=== PATIENT | male | born 1955 | race Caucasian/White ===

== ENCOUNTER 2017-09-05 10:22 | Emergency (ER) | payer OTHER ==
[2017-09-05 10:42] VITALS: BMI 33.9
--- NOTE | 2017-09-05 10:58 | PDOC ---
History of Present Illness - General Chief Complaint: Edema Stated Complaint: EDEMA Time Seen by Provider: 09/05/17 10:43 History Source: Patient Exam Limitations: No Limitations - History of Present Illness Initial Comments: CHIEF COMPLAINT: 62 y/o male with PMH HTN, HLD, NIDDM, BPH BIB EMS from [facility] for leg edema x 1 year. HISTORY OF PRESENT ILLNESS: The patient denies all other complaints including fever, cough, hemoptysis, CP, SOB, orthopnea, n/v/d, abd pain, back pain, calf pain, streaking. He is currently taking 40mg PO lasix daily. Vital signs on arrival are within normal limits. REVIEW OF SYSTEMS: GENERAL/CONSTITUTIONAL: No fever/chills. No weakness. No weight change. HEAD, EYES, EARS, NOSE AND THROAT: No change in vision. No ear pain or discharge. No sore throat. CARDIOVASCULAR: No chest pain or shortness of breath. RESPIRATORY: No cough, wheezing, or hemoptysis. No orthopnea GASTROINTESTINAL: No abd pain, nausea, vomiting, diarrhea. GENITOURINARY: No dysuria, frequency, or change in urination. MUSCULOSKELETAL: +leg swelling x 1 year. No joint or muscle pain. No neck or back pain. SKIN: No rash or easy bruising. NEUROLOGIC: No headache, vertigo, loss of consciousness, or loss of sensation. PHYSICAL EXAM: VITAL_SIGNS: within normal limits GENERAL_APPEARANCE: alert, cooperative, no obvious discomfort. MENTAL_STATUS: speech clear, oriented X 3, responds appropriately to questions. CARDIAC: RRR without m/g/r. LUNGS: CTAB without wheezing, rhonchi, rales, crackles, accessory muscle use. NEURO: motor intact and sensory intact in injured extremity. EXTREMITIES: 2+ dorsalis pedis pulse b/l. 2+ pitting edema b/l LEs. Mild brawny edema of right LE with 2 small open sores weeping serosanguinous fluid. Negative Jacky's sign b/l. SKIN: warm, dry, good color. Past History - Past Medical History Home Medications: Ambulatory Orders Amlodipine Besylate [Norvasc -] 10 mg PO DAILY 09/05/17 Aripiprazole [Abilify] 10 mg PO HS 09/05/17 Atorvastatin Calcium [Lipitor] 20 mg PO DAILY 09/05/17 Diazepam [Valium] 5 mg PO HS 09/05/17 Fluvoxamine Maleate 50 mg PO BID 09/05/17 Furosemide [Lasix] 40 mg PO BID 09/05/17 Metoprolol Tartrate [Lopressor -] 25 mg PO BID 09/05/17 Mirtazapine [Remeron -] 15 mg PO HS 09/05/17 Sennosides [Senna] 2 tab PO HS 09/05/17 Sitagliptin Phosphate [Januvia] 25 mg PO DAILY 09/05/17 Tamsulosin HCl [Flomax] 0.4 mg PO DAILY 09/05/17 COPD: No Diabetes: Yes HTN: Yes Hypercholesterolemia: Yes Psychiatric Problems: Yes (schioeffective) - Suicide/Smoking/Psychosocial Hx Smoking History: Never smoked Have you smoked in the past 12 months: No Information on smoking cessation initiated: No Hx Alcohol Use: No Drug/Substance Use Hx: No *Physical Exam - Vital Signs Last Vital Signs Temp Pulse Resp BP Pulse Ox 98.4 F 75 20 111/63 98 09/05/17 10:38 09/05/17 10:38 09/05/17 10:38 09/05/17 10:38 09/05/17 10:38 ED Treatment Course - LABORATORY CBC & Chemistry Diagram: 09/05/17 11:04 09/05/17 11:25 Medical Decision Making - Medical Decision Making A/P: 62 y/o male with b/l LE pitting edema x 1 year. No other symptoms or complaints. Plan is as follows: 1. UA/culture 2. Labs Labs unremarkable. BNP mildly elevated to 157. UA negative for infection Patient will be sent back to [facility] with instructions to continue daily lasix. The patient verbalizes understanding of all instructions, has no further questions and is awaiting discharge. *DC/Admit/Observation/Transfer Diagnosis at time of Disposition: Leg swelling - Discharge Dispostion Disposition: ASSISTED FACILITY Condition at time of disposition: Good - Referrals Referrals: Austin Culver [Primary Care Provider] - Call tomorrow - Patient Instructions Printed Discharge Instructions: DI for Peripheral Edema -- Bilateral Additional Instructions: Discharge Instructions: -Your BNP was mildly elevated to 157. Please continue to take your lasix daily -The rest of your lab work was unremarkable -Follow up with your doctor within 1 week -Return to the ER with any worsening or concerning symptoms - Post Discharge Activity
[2017-09-05 11:35] LABS: BASO % 0.8 % (0-2.0); EOS % 0.9 % (0-4.5); HEMATOCRIT 37.8 % (35.4-49); HEMOGLOBIN 12.5 GM/dL (11.7-16.9); LYMPH % 17.1 % (8-40); MCH 28.7 pg (25.7-33.7); MCHC 33.1 g/dl (32.0-35.9); MEAN CELL VOLUME 86.8 fl (80-96); MEAN PLT VOLUME 7.8 fl (7.5-11.1); MONO % 8.1 % (3.8-10.2); NEUT % 73.1 % (42.8-82.8); PLATELET COUNT 203 K/MM3 (134-434); RBC 4.36 M/mm3 (4.00-5.60); RDW 15.1 % (11.9-15.9); WHITE BLOOD COUNT 8.7 K/mm3 (4.0-10.0)
[2017-09-05 11:35] LABS: URINE APPEARANCE CLEAR; URINE BILIRUBIN NEGATIVE (<2.0 mg/dL); URINE BLOOD NEGATIVE (NEGATIVE); URINE COLOR STRAW; URINE GLUCOSE (UA) NEGATIVE (NEGATIVE); URINE KETONE NEGATIVE (NEGATIVE); URINE LEUK ESTERASE NEGATIVE (NEGATIVE); URINE NITRITE NEGATIVE (NEGATIVE); URINE PROTEIN NEGATIVE (NEGATIVE); URINE UROBILINOGEN NEGATIVE mg/dL (0.2-1.0)
[2017-09-05 11:57] LABS: ALBUMIN 3.4 g/dl (3.4-5.0); ANION GAP 5 (8-16); BLOOD UREA NITROGEN 31 mg/dL (7-18); CALCIUM 8.7 mg/dL (8.5-10.1); CHLORIDE 106 mmol/L (98-107); CO2 27 mmol/L (21-32); CREATININE 1.5 mg/dL (0.7-1.3); GLUCOSE,RANDOM 101 mg/dL (74-106); SGPT/ALT 19 U/L (12-78); SODIUM 138 mmol/L (136-145)
[2017-09-05 11:59] LABS: BILIRUBIN,TOTAL 0.3 mg/dL (0.2-1.0); POTASSIUM 4.5 mmol/L (3.5-5.1); SGOT/AST 21 U/L (15-37); TOT PROT 7.3 g/dl (6.4-8.2)
[2017-09-05 12:02] LABS: ALK PHOS 87 U/L (45-117); N-TERMINAL BNP 157.82 pg/ml (5-125)
[2017-09-05 14:22] VITALS: BP 116/67; PULSE 71; TEMP 98.6
== END 2017-09-05 15:51 ==
LOC: JER 10:22
DX: R60.0 Localized edema (principal); I10 Essential (primary) hypertension; E78.00 Pure hypercholesterolemia, unspecified; E11.9 Type 2 diabetes mellitus without complications; Z79.84 Long term (current) use of oral hypoglycemic drugs; N40.0 Benign prostatic hyperplasia without lower urinary tract symptoms; F25.9 Schizoaffective disorder, unspecified; S81.801A Unspecified open wound, right lower leg, initial encounter; X58.XXXA Exposure to other specified factors, initial encounter; Y93.89 Activity, other specified; Y92.098 Other place in other non-institutional residence as the place of occurrence of the external cause; Y99.8 Other external cause status
CPT/HCPCS: 36415; 80053; 81003; 83880; 85025; 87077; 87086; 99284-25

== ENCOUNTER 2018-08-10 12:31 | Emergency (ER) | payer OTHER ==
[2018-08-10 12:39] VITALS: BP 110/68; PULSE 81; TEMP 99.2; BMI 33.2
--- NOTE | 2018-08-10 12:49 | PDOC ---
History of Present Illness - General Chief Complaint: Bleeding from Anus Stated Complaint: Rectal Bleed History Source: Patient Exam Limitations: No Limitations - History of Present Illness Initial Comments: 08/10/18 12:47 This is a 63YOM with h/o schizoaffective disorder, constipation (takes MiraLax and stool softener), HTN, HLD, NIDDM, and BPH, who was BIBEMS from [facility] c/o painless bright red rectal bleeding on bowel movements for an unknown duration per his own report. He notes the blood was on the toilet paper and in the toilet, but was not mixed with the stool and was not a large amount. He believes he has hemorrhoids but these have not been painful. He otherwise denies any new symptoms (no f/c/n/v/d/c, black stool, FARLEY, lightheadedness, dizziness, LOC, chest pain, palpitations, SOB, weakness, paleness, etc). 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 He complained to his RN after the episode this morning. Past History - Past Medical History Allergies/Adverse Reactions: Allergies Allergy/AdvReac Type Severity Reaction Status Date / Time No Known Allergies Allergy Verified 08/10/18 13:23 Home Medications: Ambulatory Orders Atorvastatin Calcium [Lipitor] 20 mg PO DAILY 09/05/17 Diazepam [Valium] 5 mg PO HS 09/05/17 Fluvoxamine Maleate 50 mg PO BID 09/05/17 Metoprolol Tartrate [Lopressor -] 25 mg PO BID 09/05/17 Mirtazapine [Remeron -] 15 mg PO HS 09/05/17 Sennosides [Senna] 2 tab PO HS 09/05/17 Sitagliptin Phosphate [Januvia] 25 mg PO DAILY 09/05/17 Tamsulosin HCl [Flomax] 0.4 mg PO DAILY 09/05/17 Albuterol Sulfate [Proventil HFA Inhaler -] 1 - 2 inh PO BID 08/10/18 Aripiprazole [Abilify] 15 mg PO HS 08/10/18 Clopidogrel Bisulfate [Plavix -] 75 mg PO DAILY 08/10/18 Ferrous Sulfate [Feosol] 325 mg PO DAILY 08/10/18 Furosemide [Lasix -] 40 mg PO BID 08/10/18 Levothyroxine [Synthroid -] 25 mcg PO DAILY 08/10/18 Spironolactone [Aldactone] 100 mg PO DAILY 08/10/18 COPD: No Diabetes: Yes HTN: Yes Hypercholesterolemia: Yes Psychiatric Problems: Yes (schioeffective) - Suicide/Smoking/Psychosocial Hx Smoking History: Unknown if ever smoked Have you smoked in the past 12 months: No Hx Alcohol Use: No Drug/Substance Use Hx: No Review of Systems - Review of Systems Able to Perform ROS?: Yes Comments:: GEN: no fever, chills, malaise, generalized weakness, or weight change HEENT: no ear pain, sore throat, vision change, or eye pain CV: no chest pain, palpitations, lightheadedness, syncope, or edema RESP: no cough, wheezing, or SOB GI: rectal bleeding, no abdominal pain, nausea, vomiting, diarrhea, constipation , or white/black stool : no dysuria, hematuria, incontinence, retention, bleeding, or discharge MSK: no neck/back pain, muscle weakness/pain, or joint swelling/pain NEURO: no headache, seizure, vertigo, numbness, tingling, or focal weakness PSYCH: no substance use, no behavior change SKIN: no jaundice, no rash ROS otherwise negative except as noted in HPI *Physical Exam - Vital Signs Last Vital Signs Temp Pulse Resp BP Pulse Ox 99.2 F 81 14 110/68 98 08/10/18 12:38 08/10/18 12:38 08/10/18 12:38 08/10/18 12:38 08/10/18 12:38 - Physical Exam Comments: 08/10/18 13:19 GENERAL: well-appearing, pleasant, little memory of recent events, A/Ox4, no distress, answers questions appropriately HEENT: PERRLA, EOMI, moist mucous membranes NECK/BACK: no midline ttp, no spinal stepoff or deformity, no hematoma, full ROM , neck supple CARDIOVASCULAR: regular rate/rhythm, normal S1S2, no MGR, strong peripheral pulses, capillary refill <2 seconds, extremities wwp, no edema LUNGS/RESPIRATORY: no respiratory distress, CTAB GI/ABDOMEN: symmetric [id number], normoactive BS, soft, no ttp, no midline pulsatile masses : no CVA tenderness EXTREMITIES: BLE 2+ pitting edema which he notes to be chronic and which is noted on prior exam here at [facility], no muscle atrophy, no acute deformity SKIN: warm and dry, no pallor, no jaundice, no rash, no bruising, no skin breakdown, no cuts, no lesions NEUROLOGICAL: GCS 15, CN II-XII grossly intact, 5/5 strength proximally and distally, no facial droop ED Treatment Course - LABORATORY CBC & Chemistry Diagram: 08/10/18 13:40 08/10/18 13:40 Medical Decision Making - Medical Decision Making 08/10/18 13:25 Pt p/w BRBPR for unknown amount of time, no other reported symptoms. Initial Vital Signs Temp Pulse Resp BP Pulse Ox 99.2 F 81 14 110/68 98 08/10/18 12:38 08/10/18 12:38 08/10/18 12:38 08/10/18 12:38 08/10/18 12:38 Exam: As noted in Physical Exam section. DDX IBNLT bleeding hemorrhoids (internal vs. external, simple vs. thrombosed), vascular malformation, ruptured diverticulum, diverticulitis, colorectal CA, mesenteric ischemia, anal fissure, ulcerative colitis, AAA/AD, endometriosis, Meckels diverticulum, supratherapeutic INR, etc. W/U ordered: CBCD CMP Mg Phos Lactate Coags T&S EKG CXR NG Lavage Tx ordered: None at this time The patient is hemodynamically stable at this time (no hypotension, tachycardia , or reported decreased UOP). Laboratory Tests 08/10/18 08/10/18 08/10/18 13:40 13:40 13:40 WBC 9.4 RBC 4.62 Hgb 13.6 Hct 41.4 MCV 89.7 MCH 29.4 MCHC 32.8 RDW 14.2 Plt Count 203 MPV 7.3 L Sodium 139 Potassium 4.2 Chloride 105 Carbon Dioxide 26 Anion Gap 9 BUN 33 H Creatinine 1.5 H Creat Clearance w eGFR 47.27 Random Glucose 114 H Calcium 9.1 Stool Occult Blood Negative Cr and BUN roughly the same as 1 year ago. Repeat exam unchanged, patient wants to go home. DISCHARGE Workup is not concerning for emergency-level pathology at this time. The Pt is appropriate for discharge home w/ close outpatient f/u. The Pt is comfortable with this plan and will follow up with their primary care provider in 1-3 days. Referral information is given for GI provider solar panel installation supervisor. Specific return precautions are discussed and they will come back to the ER if necessary. *DC/Admit/Observation/Transfer Diagnosis at time of Disposition: Rectal bleeding - Discharge Dispostion Disposition: SENIOR CARE FACILITY Condition at time of disposition: Stable Decision to Admit order: No - Referrals Referrals: Austin Culver [Primary Care Provider] - Ronak Quintero DO [Staff Physician] - - Patient Instructions Printed Discharge Instructions: DI for Rectal Bleeding Additional Instructions: You were seen in the ER for rectal bleeding, likely because of hemorrhoids. We did lab work and everything looks normal. You are not anemic. We did an exam and there is no active bleeding. After our assessment, we do not believe you are having a medical emergency at this time, and we believe you are safe to go home. Please follow up with your primary care provider within the next week, or sooner if you have worsening rectal bleeding. Call their clinic [facility], tell them you were seen in the ER, and tell them you need an appointment. We are giving you referral information for a lapidarist doctor, and you should see them in follow-up, so call to make an appointment. You can always return to the ER for any new or worsening symptoms, especially if you have headache, dizziness , chest pain, or shortness of breath. If you are having severe or life threatening symptoms, or symptoms that make it unsafe to drive or have someone drive you, please call 911. - Post Discharge Activity
--- NOTE | 2018-08-10 12:51 | PDOC ---
Attending Attestation - Resident Resident Name: Jackie Abdalla - HPI HPI: 08/10/18 13:15 The patient is a 63 year old male with a significant past medical history of schizoaffective disorder, HTN, HLD, NIDDM, and BPH, who was BIBEMS from [facility] for evaluation of bright red blood per rectum with bowel movements for an unknown duration. The patient is a poor historian, but conversive. <Phyllis Interiano - Last Filed: 08/10/18 13:15> - Physicial Exam PE: 08/10/18 17:01 Agree with resident exam. Patient is alert and in no acute distress. Abdomen is soft, non tender non distended. - Medical Decision Making 08/10/18 17:01 Pt presents to the ED complaining of blood streaked stool. Guiac negative. Abdomen non tender. Labs within normal limits will discharge home . <Jennifer Dunbar - Last Filed: 08/10/18 17:02> Attestations - Attestations 08/10/18 13:16 Documentation prepared by Phyllis Interiano, acting as medical secretary receptionist for Jennifer Dunbar MD <Phyllis Interiano - Last Filed: 08/10/18 13:15>
[2018-08-10 13:45] LABS: HEMATOCRIT 41.4 % (35.4-49); HEMOGLOBIN 13.6 GM/dL (11.7-16.9); MCH 29.4 pg (25.7-33.7); MCHC 32.8 g/dl (32.0-35.9); MEAN CELL VOLUME 89.7 fl (80-96); MEAN PLT VOLUME 7.3 fl (7.5-11.1); PLATELET COUNT 203 K/MM3 (134-434); RBC 4.62 M/mm3 (4.00-5.60); RDW 14.2 % (11.9-15.9); WHITE BLOOD COUNT 9.4 K/mm3 (4.0-10.0)
[2018-08-10 14:10] LABS: ANION GAP 9 MMOL/L (8-16); BLOOD UREA NITROGEN 33 mg/dL (7-18); CALCIUM 9.1 mg/dL (8.5-10.1); CHLORIDE 105 mmol/L (98-107); CO2 26 mmol/L (21-32); CREATININE 1.5 mg/dL (0.55-1.3); GLUCOSE,RANDOM 114 mg/dL (74-106); POTASSIUM 4.2 mmol/L (3.5-5.1); SODIUM 139 mmol/L (136-145)
== END 2018-08-10 16:40 ==
LOC: JER 12:31
DX: K62.5 Hemorrhage of anus and rectum (principal); I10 Essential (primary) hypertension; E11.9 Type 2 diabetes mellitus without complications; Z79.84 Long term (current) use of oral hypoglycemic drugs; E78.5 Hyperlipidemia, unspecified; N40.0 Benign prostatic hyperplasia without lower urinary tract symptoms; F25.9 Schizoaffective disorder, unspecified
CPT/HCPCS: 36415; 80048; 82272; 85027; 99282-25

== ENCOUNTER 2018-11-01 16:51 | Emergency (ER) | payer OTHER | END 2018-11-01 23:09 | disposition home or self-care (01) | LOC: JER 16:51 ==

== ENCOUNTER 2019-06-21 18:30 | Emergency (ER) | payer OTHER ==
[2019-06-21 19:09] VITALS: TEMP 97.9; BMI 31.8
--- NOTE | 2019-06-21 19:12 | PDOC ---
History of Present Illness - General Chief Complaint: Choking Sensation Stated Complaint: VOMITING Time Seen by Provider: 06/21/19 19:12 - History of Present Illness Initial Comments: HPI: 64yo M with PMH schizoaffective disorder, HTN, HLD, NIDDM, BPH, chronic constipation, hypothyroidism BIBA to ED from [facility] for vomiting x 2 days. Patient without acute complaints. He states he vomiting undigested brown pork onto his dinner plate today. No abdominal pain. Not currently nauseous. Per a phone call with Miss Newton at [facility], patient has had vomiting for the past two days (which is inconsistent with patient's account). No history of abdominal surgeries. Last bowel movement was this morning and was a normal formed brown stool without blood. Patient denies fevers, chills, chest pain, or shortness of breath. ROS: Constitutional: no fever, no chills HEENT: no throat pain, no dysphagia Cardiovascular: no chest pain, no palpitations Respiratory: no cough, no shortness of breath Gastrointestinal: no abdominal pain, +vomiting Genitourinary: no dysuria, no hematuria Musculoskeletal: no myalgia, no arthralgia Skin: no rash, no itching Neurologic: no headache, no weakness Psych: no agitation, no anxiety PE: General: Awake, alert, and fully oriented, in no acute distress Head: No signs of trauma Eyes: EOMI, sclera anicteric ENT: Moist mucus membranes Neck: Normal ROM, supple Lungs: Lungs clear, Normal breath sounds Cardio: Regular rhythm, S1 and S2 present Abdomen: Soft, nontender. No guarding, no rebound, no masses. Extremities: Normal range of motion, Distal pulses present SKIN: Warm, Dry, normal turgor Neurologic: Cranial nerves II through XII grossly intact. Normal speech. Abnormal affect ED Course/MDM: DDX including but not limited to gastritis, gastroenteritis, cholecystitis, pancreatitis, ACS, hyperglycemia Labs, EKG As patient may be an unreliable historian, I have a low threshold to obtain imaging. CTAP with IV contrast ordered Will reassess 06/21/19 19:12 Discussed case with Miss Newton at [facility], , extension [phone] Patient has been vomiting for two days: "Threw up a lot yesterday" and vomited at least twice today Has been "sluggish." Is "sluggish" at baseline but has been moreso in the past two days 06/21/19 19:44 Fingerstick glucose 119 Laboratory Results - last 24 hr 06/21/19 06/21/19 20:12 20:15 WBC 8.6 RBC 4.12 Hgb 13.0 Hct 38.8 MCV 94.3 MCH 31.6 MCHC 33.5 RDW 13.9 Plt Count 190 MPV 7.5 Absolute Neuts (auto) 6.2 Neutrophils % 72.2 Lymphocytes % 19.8 Monocytes % 6.9 Eosinophils % 0.7 Basophils % 0.4 Nucleated RBC % 0 POC Glucometer 119 No leukocytosis No anemia 06/21/19 20:37 EKG: rate 72, QTc 429, NSR CMP Sodium 140 mmol/L (136-145) 06/21/19 20:15 Potassium 4.4 mmol/L (3.5-5.1) 06/21/19 20:15 Chloride 105 mmol/L (98-107) 06/21/19 20:15 Carbon Dioxide 29 mmol/L (21-32) 06/21/19 20:15 Anion Gap 6 MMOL/L (8-16) L 06/21/19 20:15 BUN 33.5 mg/dL (7-18) H 06/21/19 20:15 Creatinine 2.1 mg/dL (0.55-1.3) H 06/21/19 20:15 Est GFR (CKD-EPI)AfAm 37.43 06/21/19 20:15 Est GFR (CKD-EPI)NonAf 32.29 06/21/19 20:15 POC Glucometer 119 UNITS (80-120) 06/21/19 20:12 Random Glucose 122 mg/dL (74-106) H 06/21/19 20:15 Calcium 8.8 mg/dL (8.5-10.1) 06/21/19 20:15 Total Bilirubin 0.4 mg/dL (0.2-1) 06/21/19 20:15 AST 7 U/L (15-37) L 06/21/19 20:15 ALT 16 U/L (13-61) 06/21/19 20:15 Alkaline Phosphatase 81 U/L (45-117) 06/21/19 20:15 Troponin I < 0.02 ng/ml (0.00-0.05) 06/21/19 20:15 Total Protein 7.6 g/dl (6.4-8.2) 06/21/19 20:15 Albumin 3.8 g/dl (3.4-5.0) 06/21/19 20:15 Lipase 103 U/L (73-393) 06/21/19 20:15 Electrolytes unremarkable Cr elevated, 2.1 which is above baseline Tpn undetectable Lipase normal 1L NS ordered Patient denies current abdominal pain, nausea, or vomiting Pending CT report 06/21/19 21:51 CT as reported by radiology: " EXAM#: TYPE/EXAM: RESULT : [id number] CT/ABDOMEN PELVIS CT W/O CONTR Abdomen and pelvis CT without contrast Clinical information: emesis x 2 days Multiplanar imaging was performed. No intravenous or enteric contrast was administered. No prior imaging studies are available at this facility for direct comparison. There is no evidence of pneumoperitoneum, free intraperitoneal fluid or bowel obstruction. No gastric overdistention is seen. A small to moderate hiatal hernia is seen with possible nonspecific concentric wall thickening. Cholelithiasis is noted without CT evidence of acute cholecystitis. There is no definite biliary tract dilatation. The spleen appears borderline in size measuring approximately 11 x 11 x 4 cm. The liver, pancreas, adrenal glands and kidneys demonstrate no discrete noncontrast pathology. Several small calcifications are seen adjacent to the pancreatic which appear to be atherosclerotic in nature. There is no aortic aneurysm. No definite lymphadenopathy is noted on the basis of size criteria. Colonic diverticulosis is noted without evidence of acute diverticulitis. The appendix is not definitely visualized however no indirect CT signs of acute appendicitis are noted. No gross noncontrast small bowel abnormality is seen. Mild prostate enlargement. Marked L3-L4 degenerative disc space narrowing with mild L3-L4 degenerative retrolisthesis. Impression: A small to moderate hiatal hernia is seen with possible associated concentric wall thickening which could be artifactual in nature due to underdistention versus representing possible inflammatory change. Follow-up evaluation as clinically indicated. Borderline splenic size. Correlation with 3 month follow up sonography is suggested. Cholelithiasis. Colonic diverticulosis. Reported By: Ba Coe MD [id number] " Pending US 06/21/19 22:50 Patient signed out to Dr. Gardner and night team 06/22/19 00:02 Past History - Past Medical History Allergies/Adverse Reactions: Allergies Allergy/AdvReac Type Severity Reaction Status Date / Time No Known Allergies Allergy Verified 06/21/19 22:48 Home Medications: Ambulatory Orders Atorvastatin Calcium [Lipitor] 20 mg PO DAILY 09/05/17 Diazepam [Valium] 5 mg PO HS 09/05/17 Fluvoxamine Maleate 50 mg PO BID 09/05/17 Metoprolol Tartrate [Lopressor -] 25 mg PO BID 09/05/17 Mirtazapine [Remeron -] 15 mg PO HS 09/05/17 Sennosides [Senna] 2 tab PO HS 09/05/17 Sitagliptin Phosphate [Januvia] 25 mg PO DAILY 09/05/17 Tamsulosin HCl [Flomax] 0.4 mg PO DAILY 09/05/17 Albuterol Sulfate [Proventil HFA Inhaler -] 1 inh PO BID 08/10/18 Aripiprazole [Abilify] 15 mg PO HS 08/10/18 Clopidogrel Bisulfate [Plavix -] 75 mg PO DAILY 08/10/18 Ferrous Sulfate [Feosol] 325 mg PO DAILY 08/10/18 Furosemide [Lasix -] 40 mg PO BID 08/10/18 Levothyroxine [Synthroid -] 25 mcg PO DAILY 08/10/18 Spironolactone [Aldactone] 100 mg PO DAILY 08/10/18 COPD: No Diabetes: Yes HTN: Yes Hypercholesterolemia: Yes Psychiatric Problems: Yes (schioeffective) - Immunization History Immunization Up to Date: Yes - Psycho Social/Smoking Cessation Hx Smoking History: Current some day smoker Have you smoked in the past 12 months: Yes Number of Cigarettes Smoked Daily: 1 Information on smoking cessation initiated: Yes Hx Alcohol Use: Yes (occassionally) Drug/Substance Use Hx: No *Physical Exam - Vital Signs Last Vital Signs Temp Pulse Resp BP Pulse Ox 97.9 F 74 19 121/67 99 06/21/19 19:05 06/21/19 19:05 06/21/19 19:05 06/21/19 19:05 06/21/19 19:05 ED Treatment Course - LABORATORY CBC & Chemistry Diagram: 06/21/19 20:15 06/21/19 20:15 Discharge - Discharge Information Problems reviewed: Yes Clinical Impression/Diagnosis: Vomiting Qualifiers: Vomiting type: unspecified Vomiting Intractability: unspecified Nausea presence : unspecified Qualified Code(s): R11.10 - Vomiting, unspecified - Follow up/Referral - Patient Discharge Instructions Patient Printed Discharge Instructions: DI for Vomiting -- Adult Additional Instructions: You came into the emergency department for vomiting. Labs, ultrasound, and CT imaging did not indicate acute pathology Eat and hydrate throughout the day to prevent dehydration and low blood sugar levels. Your kidney function number was higher than your baseline. (Cr=2.1, up from 1.6 in October 2018). Follow-up with your primary care provider within 72 hours regarding this and to discuss this ED visit and to further evaluate your symptoms. Call today or tomorrow morning and make an appointment. Your workup is not complete until you do so. Immediate medical attention is required if you develop: high fevers, persistent nausea, vomiting, or any new or concerning symptoms. If you think you are having an emergency, call for emergency medical services or present to the emergency department right away. - Post Discharge Activity
[2019-06-21 20:37] LABS: BASO % 0.4 % (0-2.0); EOS % 0.7 % (0-4.5); HEMATOCRIT 38.8 % (35.4-49); LYMPH % 19.8 % (8-40); MCH 31.6 pg (25.7-33.7); MCHC 33.5 g/dl (32.0-35.9); MEAN CELL VOLUME 94.3 fl (80-96); MEAN PLT VOLUME 7.5 fl (7.5-11.1); MONO % 6.9 % (3.8-10.2); NEUT % 72.2 % (42.8-82.8); PLATELET COUNT 190 K/MM3 (134-434); RBC 4.12 M/mm3 (4.00-5.60); RDW 13.9 % (11.9-15.9); WHITE BLOOD COUNT 8.6 K/mm3 (4.0-10.0)
[2019-06-21 20:48] LABS: INR 0.98 (0.83-1.09); PROTHROMBIN TIME (PATIENT) 11.6 SEC (9.7-13.0)
[2019-06-21 20:51] LABS: ACTIVATED PTT 38.8 SECONDS (25.2-36.5)
[2019-06-21 21:06] LABS: ALBUMIN 3.8 g/dl (3.4-5.0); BILIRUBIN,TOTAL 0.4 mg/dL (0.2-1); BLOOD UREA NITROGEN 33.5 mg/dL (7-18); CALCIUM 8.8 mg/dL (8.5-10.1); CREATININE 2.1 mg/dL (0.55-1.3); POTASSIUM 4.4 mmol/L (3.5-5.1); TOT PROT 7.6 g/dl (6.4-8.2)
[2019-06-21] MEDS ORDERED: SODIUM CHLORIDE 1,000 ML IV STA (21:17)
--- NOTE | 2019-06-21 21:24 | PDOC ---
Attending Attestation - Resident Resident Name: Brisa Phan - ED Attending Attestation I have performed the following: I have examined & evaluated the patient, The case was reviewed & discussed with the resident, I agree w/resident's findings & plan, Exceptions are as noted - HPI HPI: 06/22/19 00:30 See resident HPI - Physicial Exam PE: 06/22/19 00:30 Agree with documented exam - Medical Decision Making 06/21/19 22:43 64M from [facility] with nausea/vomiting for 2 days, nbnb, normal bm, passing gas, no dizziness Inconsistent historian f/u labs, ct ap ivf dispo per clinical course Cr 2.1 from 1.6 8 months ago, KDIGO stage 1 in context of recent nausea vomiting , will give IVF hydration imaging negative for acute pathology dc
--- NOTE | 2019-06-22 00:30 | PDOC ---
*Physical Exam - Vital Signs Last Vital Signs Temp Pulse Resp BP Pulse Ox 97.9 F 74 19 121/67 99 06/21/19 19:05 06/21/19 19:05 06/21/19 19:05 06/21/19 19:05 06/21/19 19:05 ED Treatment Course - LABORATORY CBC & Chemistry Diagram: 06/21/19 20:15 06/21/19 20:15 - ADDITIONAL ORDERS Additional order review: Laboratory Results 06/21/19 06/21/19 06/21/19 20:15 20:15 20:15 PT with INR 11.60 INR 0.98 PTT (Actin FS) 38.8 H Sodium 140 Potassium 4.4 Chloride 105 Carbon Dioxide 29 Anion Gap 6 L BUN 33.5 H Creatinine 2.1 H Est GFR (CKD-EPI)AfAm 37.43 Est GFR (CKD-EPI)NonAf 32.29 POC Glucometer Random Glucose 122 H Calcium 8.8 Total Bilirubin 0.4 AST 7 L ALT 16 Alkaline Phosphatase 81 Troponin I < 0.02 Total Protein 7.6 Albumin 3.8 Lipase 103 06/21/19 20:12 PT with INR INR PTT (Actin FS) Sodium Potassium Chloride Carbon Dioxide Anion Gap BUN Creatinine Est GFR (CKD-EPI)AfAm Est GFR (CKD-EPI)NonAf POC Glucometer 119 Random Glucose Calcium Total Bilirubin AST ALT Alkaline Phosphatase Troponin I Total Protein Albumin Lipase 06/21/19 06/21/19 20:15 20:12 RBC 4.12 MCV 94.3 MCHC 33.5 RDW 13.9 MPV 7.5 Neutrophils % 72.2 Lymphocytes % 19.8 Monocytes % 6.9 Eosinophils % 0.7 Basophils % 0.4 POC Glucometer 119 - Medications Given in the ED: ED Medications Discontinued Medications Generic Name Dose Route Start Last Admin Trade Name Freq PRN Reason Stop Dose Admin Sodium Chloride 1,000 mls @ 1,000 mls/hr 06/21/19 21:17 06/21/19 22:15 Normal Saline - IV 06/21/19 22:16 1,000 mls/hr ASDIR STA Administration Medical Decision Making - Medical Decision Making 06/22/19 00:[address] Phan. Mr. Ricketts is a 64 yo male w/ pmh of schizoaffective disorder, HTN, HLD, NIDDM, BPH, chronic constipation, and hypothyroidism who presents for evaluation of vomiting. Patient evaluated with CT as well as ultrasound with no acute findings. CT significant only for cholelithiasis however no signs of acute cholecystitis noted on CT or US. Patient reports he feels at his baseline. Creatinine mildly elevated from baseline as below - patient hydrated and will f/u outpatient w/ PCP. No concern for acute process at this time. Discharging to home. Discharge - Discharge Information Problems reviewed: Yes Clinical Impression/Diagnosis: Vomiting Qualifiers: Vomiting type: unspecified Vomiting Intractability: unspecified Nausea presence : unspecified Qualified Code(s): R11.10 - Vomiting, unspecified Disposition: HOME - Follow up/Referral - Patient Discharge Instructions Patient Printed Discharge Instructions: DI for Vomiting -- Adult Additional Instructions: You came into the emergency department for vomiting. Labs, ultrasound, and CT imaging did not indicate acute pathology Eat and hydrate throughout the day to prevent dehydration and low blood sugar levels. Your kidney function number was higher than your baseline. (Cr=2.1, up from 1.6 in October 2018). Follow-up with your primary care provider within 72 hours regarding this and to discuss this ED visit and to further evaluate your symptoms. Call today or tomorrow morning and make an appointment. Your workup is not complete until you do so. Immediate medical attention is required if you develop: high fevers, persistent nausea, vomiting, or any new or concerning symptoms. If you think you are having an emergency, call for emergency medical services or present to the emergency department right away. - Post Discharge Activity
[2019-06-22 01:50] VITALS: BP 124/72; PULSE 92
--- NOTE | 2019-06-22 15:35 | EKG ---
Test Reason : Blood Pressure : / mmHG Vent. Rate : 072 BPM Atrial Rate : 072 BPM P-R Int : 178 ms QRS Dur : 094 ms QT Int : 392 ms P-R-T Axes : 049 -07 023 degrees QTc Int : 429 ms NORMAL SINUS RHYTHM NO PREVIOUS ECGS AVAILABLE Confirmed by ASHIA SAVAGE MD ([id number]) on 06/22/2019 3:35:07 PM Referred By: Confirmed By:ASHIA SAVAGE MD
== END 2019-06-22 01:56 | disposition home or self-care (01) ==
LOC: JER 18:30
PROC: 3E0337Z Introduction of Electrolytic and Water Balance Substance into Peripheral Vein, Percutaneous Approach (ICD-10-PCS; principal; 2019-06-21)
DX: R11.10 Vomiting, unspecified (principal); I10 Essential (primary) hypertension; E78.00 Pure hypercholesterolemia, unspecified; E11.9 Type 2 diabetes mellitus without complications; Z79.4 Long term (current) use of insulin; Z79.84 Long term (current) use of oral hypoglycemic drugs; F25.9 Schizoaffective disorder, unspecified; F17.210 Nicotine dependence, cigarettes, uncomplicated
CPT/HCPCS: 36415; 71046-TC-FY; 74176-TC; 76705-TC; 80053; 82962; 83690; 84484; 85025; 85610; 85730; 93005; 93010; 99284-25; J7030